=== PATIENT | female | born 1940 | race Caucasian/White ===

== ENCOUNTER 2016-06-19 08:11 | Observation (INO) | payer OTHER ==
[2016-06-19] MEDS ORDERED: fentaNYL 100 MCG/2 ML INJ ONE ×3 (08:27→11:25)
[2016-06-19] MEDS ORDERED: PROPOFOL 200 MG/20 ML VIAL ONE (08:27)
[2016-06-19] MEDS ORDERED: BUPIVACAINE 0.5% 30 ML SDV ONE (09:09)
[2016-06-19] MEDS ORDERED: CEFAZOLIN 2 GM/DEXTROSE/100 ML BAG IV ONE (09:17)
[2016-06-19] MEDS ORDERED: LIDOCAINE 2% 5 ML SDV ONE (09:22)
[2016-06-19] MEDS ORDERED: ROCURONIUM 50 MG/5 ML VIAL ONE (09:23)
[2016-06-19] MEDS ORDERED: DEXAMETHASONE 4 MG/ML VIAL ONE (09:31)
[2016-06-19] MEDS ORDERED: LR 1,000 ML IV ONE (09:59)
[2016-06-19] MEDS ORDERED: ONDANSETRON 4 MG/2 ML VIAL IVP PRN (10:53)
[2016-06-19] MEDS ORDERED: OXYCODONE/APAP 5/325 TAB PO PRN (10:53)
[2016-06-19] MEDS ORDERED: ACETAMINOPHEN 325 MG TAB PO PRN (10:54)
--- NOTE | 2016-06-19 10:57 | POSTOPPROG ---
Post Op Note Date of Operation: 06/19/16 Surgeon: Kit Alexander Dope House Operator Helper: Maritza Crowder Anesthesiologist: Soto Judge Anesthesia: GET(General Endotracheal) Pre-op Diagnosis: ventral hernia x 2 Post-op Diagnosis: same Procedure: open VH repairs with mesh x 2 Findings: 2 adjacent midline defects, ~6 cm, ~3cm Inf/Abcess present in the surg proc area at time of surgery?: No EBL: Minimal Complications: none Specimen(s): none
[2016-06-19] MEDS: HYDROmorphONE/DILAUDID 1 MG/ML SYR IVP PRN ×2 (12:09→19:41)
--- NOTE | 2016-06-19 12:11 | GOP ---
[f rep st] OPERATIVE REPORT DATE OF OPERATION: 06/19/2016 SURGEON: Kit Alexander MD LINE CAMERA OPERATOR: Maritza Crowder P.A.-C. ANESTHESIOLOGIST: Dr. Green. PREOPERATIVE DIAGNOSIS: Midline abdominal ventral hernias x2. POSTOPERATIVE DIAGNOSIS: same PROCEDURE PERFORMED: Ventrl hernia repair with mesh X2 FINDINGS: The patient was found to have a 5 cm defect in the epigastrium containing multiple openings in the fascia. In the periumbilical area, there was a 3 cm defect as well. Two separate incisions were used. DESCRIPTION OF PROCEDURE: The patient was taken to the operating room where she received satisfactory general endotracheal anesthesia by Dr. Green. She was placed in the supine position and prepped and draped in the usual sterile fashion. An incision was made in the epigastrium and dissection was extended down through the old scar. The hernia defect was dissected free. The hernia sac was freed up from surrounding subcutaneous tissue. The sac was opened at the fascial level. Its contents were reduced. The fascial edges were freshened up and a couple of adjacent holes were incorporated in the defect. After assuring no more defects above or below this area, a subfascial tunnel was created using electrocautery. A ProGrip mesh patch was placed subfascially and sutured in place with 0 Ethibond mattress sutures around the circumference of the defect, approximately 1 inch back from the edges. The primary defect was then closed directly with interrupted #1 Ethibond [id number] sutures. The wound was infiltrated with 0.25% Marcaine. Hemostasis was assured. The subcu was closed with 3-0 Vicryl and the skin with a 4-0 Monocryl subcuticular stitch. Attention was then turned to the second defect. Again, a vertical incision was made through the previous old scar. Dissection was extended down to the hernia sac, which was dissected free from surrounding subcutaneous tissue. It too was opened at the fascial edges and its contents reduced. A subfascial space was created and the ProGrip mesh was then placed subfascially on this side and again anchored in a similar manner with 0 Ethibond mattress sutures. The defect was then closed directly with #1 Ethibond [id number] sutures. The wound again was infiltrated with 0.25% Marcaine and closed with 3-0 Vicryl for the subcu and a 4-0 Monocryl subcuticular stitch for the skin. All layers were infiltrated with 0.25% Marcaine. She tolerated the procedure well. She was taken to the recovery room in a good condition. There were no complications. /[id number]/MODL MTDD
--- NOTE | 2016-06-19 19:46 | SOAPPROG ---
SOAP Progress Note Assessment/Plan: Assessment: POSTOP OKAY/ WOUNDS OK/ ALERT/ AFEBRILE Plan: HOME IN THE A.M. 06/19/16 19:46 06/20/16 07:37 Objective: Vital Signs Temp Pulse Resp BP Pulse Ox 36.5 C 76 14 127/76 H 93 06/19/16 19:31 06/19/16 19:31 06/19/16 19:31 06/19/16 19:31 06/19/16 19:31 06/18/16 06/19/16 06/20/16 05:59 05:59 05:59 Intake Total 1450 Output Total 520 Balance 930 ICD10 Worksheet Patient Problems: Problems Problem Status Onset Ventral hernia Acute
[2016-06-19] MEDS: DOCUSATE SODIUM 100 MG CAP PO SCH (20:53)
[2016-06-20] MEDS: HYDROmorphONE/DILAUDID 1 MG/ML SYR IVP PRN (03:41)
[2016-06-20] MEDS: DOCUSATE SODIUM 100 MG CAP PO SCH (10:11)
[2016-06-20 11:46] VITALS: BP 143/78; PULSE 74; RESP 18; TEMP 98.1; O2SAT 96
--- NOTE | 2016-06-20 14:17 | SOAPPROG ---
SOAP Progress Note Assessment/Plan: Assessment/Plan: 75 y F s/p VH repair x 2. pain controlled. tolerating diet. eager to go home. has son at home to help. will d/c to home today with outpatient f/u. S: pain controlled. no n/v. O: alert, nad ctab rrr abd soft, inc cdi, min swelling 06/20/16 14:14 Objective: Vital Signs Temp Pulse Resp BP Pulse Ox 36.7 C 74 18 143/78 H 96 06/20/16 11:45 06/20/16 11:45 06/20/16 11:45 06/20/16 11:45 06/20/16 11:45 06/19/16 06/20/16 06/21/16 05:59 05:59 05:59 Intake Total 1700 500 Output Total 1520 1100 Balance 180 -600 ICD10 Worksheet Patient Problems: Problems Problem Status Onset Ventral hernia Acute - ICD10 Problem Qualifiers (1) Ventral hernia Qualifiers: Obstruction and gangrene presence: without obstruction or gangrene Qualified Code(s): K43.9 - Ventral hernia without obstruction or gangrene
[2016-06-21] MEDS ORDERED: ENOXAPARIN 40 MG/0.4 ML SYR SC SCH (09:00)
== END 2016-06-20 15:34 | disposition home or self-care (01) ==
LOC: F3E 08:11
PROVIDERS: ADMIT Surgery; ATTEND Surgery
PROC: 0WUF0JZ Supplement Abdominal Wall with Synthetic Substitute, Open Approach (ICD-10-PCS; principal; 2016-06-19 09:45)
DX: K43.9 Ventral hernia without obstruction or gangrene (principal); K42.9 Umbilical hernia without obstruction or gangrene
CPT/HCPCS: 49565; 49568; 49585; C1781; G0378; J0690; J1100; J1170; J2704; J3010

== ENCOUNTER → 2016-10-16 | Outpatient (CLI) | payer OTHER | LOC: FIMAGING 08:24 | PROVIDERS: ATTEND Family Medicine | DX: Z12.31 Encounter for screening mammogram for malignant neoplasm of breast (principal) | CPT/HCPCS: G0202 ==

== ENCOUNTER → 2017-10-17 | Outpatient (CLI) | payer OTHER | LOC: FIMAGING 09:43 | PROVIDERS: ATTEND Family Medicine | DX: Z12.31 Encounter for screening mammogram for malignant neoplasm of breast (principal) ==